=== PATIENT | female | born 1960 | race Caucasian/White ===

== ENCOUNTER 2018-02-05 11:24 | Outpatient (CLI) | payer OTHER | END 2018-02-05 20:00 | disposition home or self-care (01) | LOC: SMI 11:24 | PROVIDERS: ATTEND Neuromusculoskeletal Medicine, Sports Medicine | DX: M25.462 Effusion, left knee (principal) | CPT/HCPCS: 73721 ==

== ENCOUNTER 2018-07-16 08:30 | Outpatient (CLI) | payer OTHER | END 2018-07-16 21:08 | disposition home or self-care (01) | LOC: SMI 08:30 | PROVIDERS: ATTEND Neuromusculoskeletal Medicine, Sports Medicine | DX: M25.462 Effusion, left knee (principal) | CPT/HCPCS: 73721 ==

== ENCOUNTER 2022-02-18 10:50 | Outpatient (CLI) | payer OTHER | END 2022-02-18 17:30 | disposition home or self-care (01) | LOC: SMI 10:50 | PROVIDERS: ATTEND Internal Medicine Geriatric Medicine | DX: M47.812 Spondylosis without myelopathy or radiculopathy, cervical region (principal); M54.2 Cervicalgia; M48.02 Spinal stenosis, cervical region | CPT/HCPCS: 72141 ==